=== PATIENT | female | born 1955 | race Native Hawaiian/Other Pacific Islander ===

== ENCOUNTER 2016-12-10 12:09 | Outpatient (CLI) | payer BC ==
[~2016-12-10 12:09] MED LIST: ASA LO-DOSE81 MG PO; GARCINIA CAMBOG1 TAB PO; MELATONIN10 MG PO
== END 2016-12-10 13:15 | disposition home or self-care (01) ==
LOC: CT 12:09
DX: K57.92 Diverticulitis of intestine, part unspecified, without perforation or abscess without bleeding (principal)
CPT/HCPCS: 36415; 82565; 84520; Q9963

== ENCOUNTER 2018-09-26 09:07 | Outpatient (CLI) | payer OTHER ==
[2018-09-26 09:41] LABS: PLATELET COUNT 206 K/uL (152-353)
[2018-09-26 10:05] LABS: POTASSIUM 4.1 mmol/L (3.6-5.2)
== END 2018-09-26 21:05 | disposition home or self-care (01) ==
LOC: LABW 09:07
PROVIDERS: Physician Assistant
DX: Z85.3 Personal history of malignant neoplasm of breast (principal); K57.92 Diverticulitis of intestine, part unspecified, without perforation or abscess without bleeding; K59.04 Chronic idiopathic constipation
CPT/HCPCS: 36415; 80053; 80061; 82306; 83036; 84439; 84443; 85027

== ENCOUNTER 2018-09-28 13:06 | Outpatient (CLI) | payer OTHER | END 2018-09-28 19:21 | disposition home or self-care (01) | LOC: MAMMO 13:06 | DX: Z85.3 Personal history of malignant neoplasm of breast (principal); Z90.11 Acquired absence of right breast and nipple ==

== ENCOUNTER 2018-11-13 11:44 | Emergency (ER) | payer OTHER ==
[~2018-11-13] VITALS: Ht 180.3 cm; Wt 85.3 kg
[2018-11-13 11:50] VITALS: TEMP 98.2
[2018-11-13] MEDS ORDERED: CENTRUM1 TAB PO (12:03)
[2018-11-13] MEDS ORDERED: GNP KRILL OIL O1 CAP PO (12:04)
[2018-11-13] MEDS ORDERED: CALCIUM + D PO (12:04)
[2018-11-13] MEDS ORDERED: [UNRECOGNIZED DRUG - OTHER] PO (12:04)
[2018-11-13] MEDS ORDERED: [UNRECOGNIZED DRUG - OTHER] PO (12:06)
[2018-11-13 12:37] LABS: POTASSIUM 4.2 mmol/L (3.6-5.2)
[2018-11-13 12:45] LABS: PLATELET COUNT 235 K/uL (152-353)
[2018-11-13 14:13] VITALS: BP 98/56
[2018-11-13] MEDS ORDERED: METR250T19 PO ×2 (16:22→16:25)
[2018-11-13] MEDS ORDERED: OXYC5TAB53 PO ×2 (16:23→16:25)
[2018-11-13] MEDS ORDERED: CIPRO500 MG PO (16:24)
== END 2018-11-13 16:41 | disposition home or self-care (01) ==
LOC: ED 11:44
PROVIDERS: Student in an Organized Health Care Education/Training Program
DX: K57.92 Diverticulitis of intestine, part unspecified, without perforation or abscess without bleeding (principal)
CPT/HCPCS: 80053; 81000; 82150; 83690; 85027; 96360; 96375; 96376; 99284; J1885; J2270; J2405; Q9963

== ENCOUNTER 2019-03-26 20:17 | Emergency (ER) | payer OTHER ==
[~2019-03-26] VITALS: Ht 180.3 cm; Wt 85.3 kg
[~2019-03-26 20:17] MED LIST changes: +CALCIUM + D PO; +CENTRUM1 TAB PO; +CIPRO500 MG PO; +GNP KRILL OIL O1 CAP PO; +METR250T19 PO; +OXYC5TAB53 PO; +[UNRECOGNIZED DRUG - OTHER] PO; +[UNRECOGNIZED DRUG - OTHER] PO
[2019-03-26] MEDS ORDERED: HYDR5TAB9 PO (20:38)
[2019-03-26] MEDS ORDERED: AZO PO (20:39)
[2019-03-26] MEDS ORDERED: MIRALAX3350 N1 PO (20:39)
[2019-03-26 22:20] VITALS: BP 97/48; TEMP 98.8
== END 2019-03-26 22:25 | disposition home or self-care (01) ==
LOC: ED 20:17
DX: N39.0 Urinary tract infection, site not specified (principal); Z98.890 Other specified postprocedural states
CPT/HCPCS: 81000; 87077; 87086; 87088; 87186; 96372; 99283; J1885

== ENCOUNTER 2020-02-08 15:33 | Outpatient (CLI) | payer OTHER ==
[~2020-02-08 15:33] MED LIST changes: +AZO PO; +HYDR5TAB9 PO; +MIRALAX3350 N1 PO
== END 2020-02-08 23:05 | disposition home or self-care (01) ==
LOC: MAMMO 15:33
DX: Z12.31 Encounter for screening mammogram for malignant neoplasm of breast (principal); Z85.3 Personal history of malignant neoplasm of breast
CPT/HCPCS: G0279

== ENCOUNTER 2020-02-09 22:24 | Emergency (ER) | payer OTHER ==
[~2020-02-09] VITALS: Ht 175.3 cm; Wt 73.9 kg
[2020-02-10 01:00] VITALS: BP 128/72; TEMP 98.2
== END 2020-02-10 01:00 | disposition home or self-care (01) ==
LOC: ED 22:24
DX: S00.83XA Contusion of other part of head, initial encounter (principal); S01.511A Laceration without foreign body of lip, initial encounter; W01.198A Fall on same level from slipping, tripping and stumbling with subsequent striking against other object, initial encounter; Y92.89 Other specified places as the place of occurrence of the external cause
CPT/HCPCS: 96372; 99283; J1170; J1885; J2270

== ENCOUNTER 2021-03-23 09:06 | Outpatient (CLI) | payer OTHER | END 2021-03-23 19:48 | disposition home or self-care (01) | LOC: MAMMO 09:06 | PROVIDERS: ATTEND Registered Nurse | DX: Z12.31 Encounter for screening mammogram for malignant neoplasm of breast (principal); N64.59 Other signs and symptoms in breast | CPT/HCPCS: G0279 ==

== ENCOUNTER 2022-03-25 08:55 | Outpatient (CLI) | payer OTHER | END 2022-03-25 19:22 | disposition home or self-care (01) | LOC: MAMMO 08:55 | PROVIDERS: ATTEND Nurse Practitioner | DX: Z12.31 Encounter for screening mammogram for malignant neoplasm of breast (principal); N64.59 Other signs and symptoms in breast | CPT/HCPCS: G0279 ==

== ENCOUNTER 2022-07-14 09:35 | Emergency (ER) | payer OTHER ==
[~2022-07-14] VITALS: Ht 172.7 cm; Wt 70.3 kg
[2022-07-14 09:39] VITALS: BP 115/60; TEMP 97.9
[2022-07-14 10:17] LABS: PLATELET COUNT 212 K/uL (152-353)
== END 2022-07-14 13:26 | disposition home or self-care (01) ==
LOC: ED 09:35
PROVIDERS: Emergency Medicine
DX: M25.571 Pain in right ankle and joints of right foot (principal)
CPT/HCPCS: 80053; 84550; 85027; 99283